=== PATIENT | male | born 1950 | race Caucasian/White ===

== ENCOUNTER 2016-05-27 22:17 | Emergency (ER) | payer OTHER, BC ==
[2016-05-27] MEDS ORDERED: NORMAL SALINE 10 ML SYRINGE FLUSH IVP PRN (22:26)
[2016-05-27] MEDS ORDERED: Sodium Chloride 0.9% 1,000 ML PRIMARY IV ONE (22:26)
[2016-05-27] MEDS ORDERED: LORazepam 2 MG/1 ML VIAL IVP ONE (22:27)
--- NOTE | 2016-05-27 22:31 | EKG ---
[address] [place] [address] [place] [address] Measurements Intervals [place] Rate: 80 P: 39 MD: 207 QRS: 16 QRSD: 95 T: 99 QT: 377 QTc: 413 Interpretive Statements SINUS RHYTHM WITH BORDERLINE FIRST DEGREE AV BLOCK ANTEROSEPTAL MYOCARDIAL INFARCTION OF INDETERMINATE AGE Compared to ECG 04/23/2016 04:18:19 Intraventricular conduction delay no longer present Myocardial infarct finding still present Electronically Signed On 05-28-16 09:07:01 [facility] by Matt Lara [id number]
[2016-05-27 22:45] LABS: BASOPHILS # (AUTO) 0.02 10*3/UL; BASOPHILS % (AUTO) 0.3 % (0-1); EOSINOPHILS % (AUTO) 1.5 % (0-8); HEMATOCRIT 47.6 % (42.0-52.0); IMM GRAN % (AUTO) 0.5 % (0-5); IMM GRAN# (AUTO) 0.03 10*3/UL; LYMPHOCYTES # (AUTO) 1.14 10*3/uL; MEAN CORPUSCULAR HEMOGLOBIN 29.9 PG (27-31); MEAN CORPUSCULAR HGB CONC 35.7 g/dL (33-37); MEAN PLATELET VOLUME 9.5 FL (7.4-12.2); MONOCYTES # (AUTO) 0.77 10*3/UL (0.3-0.8); MONOCYTES % (AUTO) 12.8 % (5-15); NEUTROPHILS # (AUTO) 3.96 10*3/UL; NEUTROPHILS % (AUTO) 65.9 % (50-80); RDW COEFFICIENT OF VARIATION 13.3 % (11.5-14.5); RED BLOOD COUNT 5.68 10^6/uL (4.70-6.10); WHITE BLOOD COUNT 6.01 10^3/uL (4.8-10.8)
[2016-05-27 22:48] LABS: PLATELET MORPHOLOGY COMMENT NORMAL MORPHOLOGY (NORM)
[2016-05-27 22:59] LABS: CHLORIDE 107 meq/L (98-112); POTASSIUM 3.8 meq/L (3.8-5.2); SODIUM 140 meq/L (135-145)
[2016-05-27 23:00] LABS: ASPARTATE AMINO TRANSFERASE 29 IU/L (21-57); BILIRUBIN,TOTAL 0.9 mg/dL (0.3-1.2); BLOOD UREA NITROGEN 10 mg/dL (7-22); CALCIUM 9.1 mg/dL (8.7-10.7); CREATININE 0.8 mg/dL (0.70-1.50); EST GLOMERULAR FILTRATION > 60 (>60 ml/min/1.73m(2)); GLUCOSE 120 mg/dL (78-110); MAGNESIUM 2.3 mg/dL (1.6-2.4); TOTAL PROTEIN 7.8 g/dL (6.1-8.0)
[2016-05-28 00:24] VITALS: RESP 20; TEMP 98.7
--- NOTE | 2016-05-28 01:24 | PDOC ---
General Adult HPI - General Chief Complaint: General Medical Stated Complaint: "Anxiety and shortness of breath" Date Seen by Provider: 05/28/16 Time Seen by Provider: 22:20 Source: POSITIVE: Patient Exam Limitations: POSITIVE: No limitations Nurse's Notes Reviewed & Considered: Yes - History of Present Illness Initial Comment: The patient is a 65-year-old male who presents to the emergency department by ambulance with shortness of breath. He states that approximately an hour ago he had onset of increased anxiety associated with increased shortness of breath. He denies chest pain, headache, numbness or weakness in his extremities. He states he tried taking Xanax at home however did not seem to be improving so they subsequently called EMS. By the time EMS arrived the patient was already starting to feel better. He was however still transferred here to the emergency room for evaluation. He has had similar episodes previously associated with panic attack. Have you received a tetanus shot in the past 10 years?: Unknown - Patient Home Medications Home Medications: Home Medications Aspirin 325 mg PO QAM 04/16/11 Rosuvastatin Calcium [Crestor] 0.5 tab ORAL QD #90 tab 10/23/15 Amlodipine Besylate [Norvasc] 1 tab ORAL QD #90 tab 11/05/15 Clopidogrel Bisulfate [Plavix] 1 tab ORAL QD #90 tab 01/20/16 Sertraline HCl 1 tab PO DAILY #30 tab 04/30/16 Methylprednisolone [Medrol] 4 mg PO 3-4XD #1 packet 05/20/16 Alprazolam 1 tab PO Q6H #10 tab 05/27/16 - Patient Allergies Allergies/Adverse Reactions: Allergies Allergy/AdvReac Type Severity Reaction Status Date / Time carvedilol [From Coreg] Allergy Severe bradycardia Unverified 05/20/16 11:33 Iodinated Contrast Media - Allergy Severe SOB Unverified 05/20/16 11:33 Oral and [IV Dye, Iodine Containing Contrast ] olive extract [[place]] Allergy Severe mouth Unverified 05/20/16 11:33 swells, lips swell ibuprofen [Ibuprofen] AdvReac Mild DIARRHEA Unverified 05/20/16 11:33 tangerines Allergy Severe swells Uncoded 04/23/16 03:45 throat shut Past Medical History - heen HEENT History: Hard of Hearing Cardiovascular History: Hypertension, Previous [place], CAD, Hyperlipidemia Additional Cardiovasular History: 2 CARDIAC STENTS. Respiratory History: Denies History Gastrointestinal History: Other (please comment) Additional Gastrointestinal History: DIVERTICULITIS;HISTORY OF COLOSTOMY WITH REVERSAL. Genitourinary History: Denies History Endocrine History: Denies History Musculoskeletal History: Denies History Prosthesis or Implant: No Neurological History: Denies History Blood Disorders: Denies History Psychiatric History: Depression, Anixety Disorders Additional Psychiatric History: HAVING ANXIETY THIS AM History of Sexually Transmitted Diseases: No Cancer History: Denies History In Past Year Been Physically Harmed or Verbally Threatened: No History of MDRO: No History of Other Communicable Diseases: No Tobacco Use: Never Smoker Alcohol Use: None Substance Use Type: None Previous Surgical History: Yes Type / Date of Surgery: COLOSTOMY WITH REVERSAL, CARDIAC STENTS X2. Anesthesia Reactions: No Malignant Hyperthermia: No Significant Family History: Heart disease, Hypertension Past Medical History Reviewed: Reviewed - No Changes ROS - Limitations ROS Limitations: No Limitations Constitution: DENIES: Chills, Fever Cardiovascular: REPORTS: Blood Pressure Problem (Elevated blood pressure). DENIES: Chest Pain, Heart Racing, Heart Palpitations, Edema Respiratory: REPORTS: Shortness Of Breath. DENIES: Cough Non Productive, Cough Productive Neurological: REPORTS: Dizziness. DENIES: Headache, Numbness, Weakness Gastrointestinal: REPORTS: Nausea. DENIES: Abdominal Pain, Vomitting, Diarrhea Musculoskeletal: REPORTS: Denies MS Symptoms Genitourinary: REPORTS: Denies Symptoms Eyes: REPORTS: Denies Symptoms ENT: REPORTS: Denies Symptoms General Adult Exam - General Appearance General Appearance: POSITIVE: Alert, Cooperative, No Acute Distress - HEENT HEENT: POSITIVE: Head Inspection Nml, Eyes Inspection Nml, Ears Inspection Nml, Pharynx Inspect. Nml - Neck Neck: POSITIVE: Normal Inspection. NEGATIVE: Lymphadenopathy - Respiratory Respiratory: POSITIVE: No Respiratory Distress, Breath Sounds Normal - Cardiovascular Cardiovascular: POSITIVE: Regular Rate & Rhythm, No Murmur Peripheral Pulses: Dorsalis-pedis (R): 2+, Dorsalis-pedis (L): 2+ - Abdomen Abdomen: Soft: (All Quadrants), Denies Tenderness: (All Quadrants), No Distention: (All Quadrants) General Adult Progress - Results Reviewed by me Xrays/CTs/US Reviewed by me: Yes Radiology Findings: Chest x-ray shows normal heart size, normal lung adames. Lab Results Reviewed: Yes Lab Results:: Laboratory Results 05/27/16 Range/Units 22:35 WBC 6.01 (4.8-10.8) 10^3/uL RBC 5.68 (4.70-6.10) 10^6/uL Hgb 17.0 (14.0-18.0) g/dL Hct 47.6 (42.0-52.0) % MCV 83.8 (80-90) FL MCH 29.9 (27-31) PG MCHC 35.7 (33-37) g/dL RDW Std Deviation 40.7 (39-50) fL RDW Coeff of Jacob 13.3 (11.5-14.5) % Plt Count 164 (140-350) 10*3/uL MPV 9.5 (7.4-12.2) FL Immature Gran % (Auto) 0.5 (0-5) % Neut % (Auto) 65.9 (50-80) % Lymph % (Auto) 19.0 (10-50) % [place] % (Auto) 12.8 (5-15) % Eos % (Auto) 1.5 (0-8) % Baso % (Auto) 0.3 (0-1) % Immature Gran # (Auto) 0.03 10*3/UL Neut # (Auto) 3.96 10*3/UL Lymph # (Auto) 1.14 10*3/uL [place] # (Auto) 0.77 (0.3-0.8) 10*3/UL Eos # (Auto) 0.09 10*3/UL Baso # (Auto) 0.02 10*3/UL WBC Morphology Comment Normal morphology (NORM) Plt Morphology Comment Normal morphology (NORM) RBC Morph Comment Normal morphology (NORM) D-Dimer < 0.19 (0.00-0.59) mg/L Sodium 140 (135-145) meq/L Potassium 3.8 (3.8-5.2) meq/L Chloride 107 (98-112) meq/L Carbon Dioxide 22 L (23-33) meq/L Anion Gap 11 (5-20) BUN 10 (7-22) mg/dL Creatinine 0.8 (0.70-1.50) mg/dL Estimated GFR > 60 (>60 ml/min/1.73m(2)) BUN/Creatinine Ratio 12.50 (6-20) Glucose 120 H (78-110) mg/dL Calculated Osmolality 289.0 (267-292) mOsm/kg Calcium 9.1 (8.7-10.7) mg/dL Magnesium 2.3 (1.6-2.4) mg/dL Total Bilirubin 0.9 (0.3-1.2) mg/dL AST 29 (21-57) IU/L ALT 31 (21-72) IU/L Alkaline Phosphatase 42 (38-126) IU/L Troponin I 0.010 (< 0.040) ng/mL Total Protein 7.8 (6.1-8.0) g/dL Albumin 4.3 (3.5-4.8) g/dL Globulin 3.5 (2.50-4.10) g/dL Albumin/Globulin Ratio 1.20 L (1.3-2.0) mg/g EKG Interpreted/Reviewed By Me:: Yes EKG Interpretation:: POSITIVE: Normal Sinus Rhythm, Normal Rate, Normal Intervals, Normal ST/T - Patient's Progress MDM / ED Course: By the time the patient arrived in the emergency room his symptoms were already starting to improve. He did receive a dose of Ativan and subsequently his symptoms resolved. His EKG, chest x-ray and blood work are all essentially unremarkable. The patient will be discharged home. He is advised to continue his current medications as previously prescribed. Return to the emergency room if any worsening or change in symptoms. - Consult Counseled: POSITIVE: Patient, Family, RE: Lab Results, RE: Radiology Results, RE : DX, RE: Need for F/U Patient Care Time - Estimated PCT Patient Care Time (In Minutes): 30 Vital Signs - Recent Vital Signs Vital Signs: Vital Signs (Last 8 hours) Temp Pulse Resp BP Pulse Ox 05/27/16 22:17 98.7 F 81 20 176/100 97 - VS Reviewed Vital Signs Reviewed: Yes Discharge Clinical Impression: Panic attack Condition: Stable Patient Instructions Given at Discharge: Panic Attack (ED) Additional Instructions: Your EKG, and blood work were all unremarkable. Your symptoms are most likely caused by panic attack. Continue Xanax as previously prescribed. Return to the emergency room if any worsening or change in symptoms. Recommend follow-up with Dr. Dyson in 3-5 days. Follow Up With: MAYRA DYSON [Primary Care Provider] -
--- NOTE | 2016-05-28 09:16 | DI ---
XR CXR 1VW,05/27/2016 10:26 PM: Clinical History: Dyspnea and hypertension Previous Exam: July 19, 2015 Findings: A single frontal radiograph of the chest is obtained, and demonstrates clear lungs. The cardiomediast inum and bony thorax are unremarkable. Overlying EKG leads are seen. There are some subsegmental plat elike atelectasis within the lung bases. Impression: Subsegmental atelectasis in the left lung base otherwise unremarkable.
== END 2016-05-27 23:52 | disposition home or self-care (01) ==
LOC: ER 22:17
DX: F41.0 Panic disorder [episodic paroxysmal anxiety] (principal); R42 Dizziness and giddiness; I10 Essential (primary) hypertension; R06.02 Shortness of breath
CPT/HCPCS: 71010; 80053; 83735; 83880; 84484; 85025; 85379; 93005; 93010; 99283; J2060

== ENCOUNTER 2016-06-03 09:48 | Emergency (ER) | payer OTHER, BC ==
[2016-06-03] MEDS ORDERED: NORMAL SALINE 10 ML SYRINGE FLUSH IVP PRN (10:10)
[2016-06-03] MEDS ORDERED: Sodium Chloride 0.9% 1,000 ML PRIMARY IV ONE (10:10)
[2016-06-03 10:11] VITALS: RESP 20; TEMP 97.3
--- NOTE | 2016-06-03 10:14 | EKG ---
[address] [address] Measurements Intervals [place] Rate: 80 P: 64 MO: 191 QRS: 56 QRSD: 93 T: 110 QT: 364 QTc: 401 Interpretive Statements SINUS RHYTHM ANTEROSEPTAL MYOCARDIAL INFARCTION OLD Compared to ECG 05/27/2016 22:27:19 No significant changes Electronically Signed On 06-03-16 11:13:11 [facility] by Matt Lara [id number]
[2016-06-03 10:20] LABS: BASOPHILS # (AUTO) 0.01 10*3/UL; BASOPHILS % (AUTO) 0.2 % (0-1); EOSINOPHILS % (AUTO) 1.5 % (0-8); HEMATOCRIT 50.1 % (42.0-52.0); HEMOGLOBIN 17.7 g/dL (14.0-18.0); IMM GRAN % (AUTO) 0.6 % (0-5); IMM GRAN# (AUTO) 0.03 10*3/UL; LYMPHOCYTES # (AUTO) 0.81 10*3/uL; LYMPHOCYTES % (AUTO) 16.9 % (10-50); MEAN CORPUSCULAR HEMOGLOBIN 29.6 PG (27-31); MEAN CORPUSCULAR HGB CONC 35.3 g/dL (33-37); MEAN PLATELET VOLUME 9.9 FL (7.4-12.2); MONOCYTES # (AUTO) 0.61 10*3/UL (0.3-0.8); MONOCYTES % (AUTO) 12.7 % (5-15); NEUTROPHILS # (AUTO) 3.27 10*3/UL; NEUTROPHILS % (AUTO) 68.1 % (50-80); RDW COEFFICIENT OF VARIATION 13.1 % (11.5-14.5); RED BLOOD COUNT 5.98 10^6/uL (4.70-6.10)
[2016-06-03 10:23] LABS: PLATELET MORPHOLOGY COMMENT NORMAL MORPHOLOGY (NORM)
[2016-06-03 10:25] LABS: ASPARTATE AMINO TRANSFERASE 30 IU/L (21-57); BILIRUBIN,TOTAL 1.3 mg/dL (0.3-1.2); BLOOD UREA NITROGEN 9 mg/dL (7-22); CALCIUM 9.8 mg/dL (8.7-10.7); CHLORIDE 103 meq/L (98-112); EST GLOMERULAR FILTRATION > 60 (>60 ml/min/1.73m(2)); GLUCOSE 121 mg/dL (78-110); SODIUM 138 meq/L (135-145); TOTAL PROTEIN 7.6 g/dL (6.1-8.0)
[2016-06-03 10:37] LABS: CREATINE KINASE MB 2.93 NG/DL (0.00-5.00); TROPONIN I < 0.012 ng/mL (< 0.040)
--- NOTE | 2016-06-03 10:45 | DI ---
History: Dyspnea. Two-view study. Prior examination: 07/19/15 Findings: Minimal linear scarring right lung base. No cardiac enlargement. Small epicardial fat pad a t the apex, as observed previously. No effusion and no infiltrate identified. Impression: Minimal linear scarring right lung base. No other focal findings
--- NOTE | 2016-06-03 12:19 | PDOC ---
General Adult HPI - General Chief Complaint: Chest Pain Stated Complaint: shortness of breath, dizzyness, "chest feels hollow" Date Seen by Provider: 06/03/16 Time Seen by Provider: 09:52 Source: POSITIVE: Patient Exam Limitations: POSITIVE: No limitations Nurse's Notes Reviewed & Considered: Yes - History of Present Illness Initial Comment: The patient is a 65-year-old male. He presents to the emergency room by private auto. He states that this morning he became very anxious; he states that part of the source of his anxiety is the emotional stress he feels in being essentially the sole caregiver of his 94-year-old father. He has a long- standing history of anxiety for which she has been prescribed Xanax, but he states he's not taken any Xanax for over 2 days. He has been prescribed Xanax, 0.25 mg. He complains of being short of breath and somewhat dizzy. He states he has a "hollow"sensation in his chest but denies any kind of chest pain. He does have a history of coronary artery disease and underwent two coronary artery stents in 2004; he states he was diagnosed with a myocardial infarction in 2004. He does not smoke. He took 325 mg of aspirin at 4 AM. He takes Norvasc, Plavix, Crestor and Zoloft, and Xanax, on an as necessary basis. He was seen in the emergency room 4 days ago, he states, for anxiety and received some Ativan at that time. Have you received a tetanus shot in the past 10 years?: Unknown Body Location Affected: REPORTS: Other (As above; sensation of shortness of breath and" a hollow feeling" in my chest.) Timing: REPORTS: Abrupt Duration: 4-6 hours (Onset around 6 AM today) Severity: Moderate Quality: REPORTS: Other (Patient denies any chest pain or any other kind of pain anywhere) Context: REPORTS: None Modifying Factors: improves with: Nothing Associated Symptoms: As above Similar Symptoms Previously: Yes (history of similar symptoms with episodes of anxiety) Recent Care Received: REPORTS: Recently Seen (Seen in the ER 4 days ago for anxiety; see above) Any Prior Injuries Related to Current Complaint?: No - Patient Home Medications Home Medications: Home Medications Aspirin 325 mg PO QAM 04/16/11 Rosuvastatin Calcium [Crestor] 0.5 tab ORAL QD #90 tab 10/23/15 Amlodipine Besylate [Norvasc] 1 tab ORAL QD #90 tab 11/05/15 Clopidogrel Bisulfate [Plavix] 1 tab ORAL QD #90 tab 01/20/16 Sertraline HCl 1 tab PO DAILY #30 tab 04/30/16 Alprazolam 1 tab PO Q6H #60 tab 05/29/16 - Patient Allergies Allergies/Adverse Reactions: Allergies Allergy/AdvReac Type Severity Reaction Status Date / Time carvedilol [From Coreg] Allergy Severe bradycardia Verified 06/03/16 09:54 Iodinated Contrast Media - Allergy Severe SOB Verified 06/03/16 09:54 Oral and [IV Dye, Iodine Containing Contrast ] olive extract [[place]] Allergy Severe mouth Verified 06/03/16 09:54 swells, lips swell ibuprofen [Ibuprofen] AdvReac Mild DIARRHEA Verified 06/03/16 09:54 tangerines Allergy Severe swells Uncoded 06/03/16 09:54 throat shut Past Medical History - heen HEENT History: Hard of Hearing Cardiovascular History: Hypertension, Previous [place], CAD, Hyperlipidemia Additional Cardiovasular History: 2 CARDIAC STENTS. Respiratory History: Denies History Gastrointestinal History: Other (please comment) Additional Gastrointestinal History: DIVERTICULITIS;HISTORY OF COLOSTOMY WITH REVERSAL. Genitourinary History: Denies History Endocrine History: Denies History Musculoskeletal History: Denies History Prosthesis or Implant: No Neurological History: Denies History Blood Disorders: Denies History Psychiatric History: Depression, Anixety Disorders Additional Psychiatric History: HAVING ANXIETY THIS AM History of Sexually Transmitted Diseases: No Cancer History: Denies History In Past Year Been Physically Harmed or Verbally Threatened: No History of MDRO: No History of Other Communicable Diseases: No Tobacco Use: Never Smoker Alcohol Use: None Substance Use Type: None Previous Surgical History: Yes Type / Date of Surgery: COLOSTOMY WITH REVERSAL, CARDIAC STENTS X2. Anesthesia Reactions: No Malignant Hyperthermia: No Significant Family History: Heart disease, Hypertension Past Medical History Reviewed: Reviewed - No Changes ROS - Limitations ROS Limitations: No Limitations Constitution: REPORTS: Denies Symptoms Cardiovascular: REPORTS: Denies Cardiac Symptoms Respiratory: REPORTS: Shortness Of Breath Neurological: REPORTS: Dizziness Gastrointestinal: REPORTS: Denies GI Symptoms Endocrine: REPORTS: Denies Symptoms Musculoskeletal: REPORTS: Denies MS Symptoms Genitourinary: REPORTS: Denies Symptoms Eyes: REPORTS: Denies Symptoms ENT: REPORTS: Denies Symptoms Skin: REPORTS: Denies Skin Symptoms Lympathic: REPORTS: Denies Lympathic Symptoms Immunologic: POSITIVE: Denies Symptoms Psychiatric: POSITIVE: Anxiety General Adult Exam - General Appearance General Appearance: POSITIVE: Alert, Cooperative, No Acute Distress, No Evidence of Trauma, Anxious (Patient hyperventilating.) - HEENT HEENT: POSITIVE: Head Inspection Nml, Eyes Inspection Nml, Ears Inspection Nml, Nose Inspection Nml, Oral/Dental Inspect. Nml, Pharynx Inspect. Nml, PERRL, EOMI - Pupils Pupil Size: 4 mm: Bilateral (PERRLA) - Neck Neck: POSITIVE: Normal Inspection, Thyroid Normal - Respiratory Respiratory: POSITIVE: No Respiratory Distress, Breath Sounds Normal, Chest Non- Tender - Cardiovascular Cardiovascular: POSITIVE: Regular Rate & Rhythm, No Murmur, No Gallop, PMI Normal Peripheral Pulses: Radial (R): 2+, Radial (L): 2+ - Abdomen Abdomen: Soft: (All Quadrants), Normal Bowel Sounds: (All Quadrants), Denies Tenderness: (All Quadrants), No Splenomegaly: (All Quadrants), No Hepatomegaly: (All Quadrants), No Guarding: (All Quadrants), No Rebound: (All Quadrants), No Palpable Pulse: (All Quadrants), No Palpabale Mass: (All Quadrants), No Distention: (All Quadrants), No Rigidity: (All Quadrants) - Back Back: POSITIVE: Normal Inspection - Skin Skin: POSITIVE: Normal Color, Warm, Dry, No Rash - Extremities Extremity: Non-Tender: (All Extremities), Normal ROM: (All Extremities), Normal Inspection: (All Extremities) - Neurological / Psychological Neurological: POSITIVE: Oriented X3, 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, Motor Normal, Sensation Normal, 5, 6 General Adult Progress - Results Reviewed by me Xrays/CTs/US Reviewed by me: Yes Discussed with Radiologist: No Radiology Findings: Chest x-ray normal by my interpretation; radiologist interpretation pending Lab Results Reviewed: Yes (all normal except mild respiratory alkalosis on venous blood gas) Lab Results:: Laboratory Results 06/03/16 06/03/16 Range/Units 10:15 10:26 WBC 4.80 (4.8-10.8) 10^3/uL RBC 5.98 (4.70-6.10) 10^6/uL Hgb 17.7 (14.0-18.0) g/dL Hct 50.1 (42.0-52.0) % MCV 83.8 (80-90) FL MCH 29.6 (27-31) PG MCHC 35.3 (33-37) g/dL RDW Std Deviation 40.3 (39-50) fL RDW Coeff of Jacob 13.1 (11.5-14.5) % Plt Count 160 (140-350) 10*3/uL MPV 9.9 (7.4-12.2) FL Immature Gran % (Auto) 0.6 (0-5) % Neut % (Auto) 68.1 (50-80) % Lymph % (Auto) 16.9 (10-50) % [place] % (Auto) 12.7 (5-15) % Eos % (Auto) 1.5 (0-8) % Baso % (Auto) 0.2 (0-1) % Immature Gran # (Auto) 0.03 10*3/UL Neut # (Auto) 3.27 10*3/UL Lymph # (Auto) 0.81 10*3/uL [place] # (Auto) 0.61 (0.3-0.8) 10*3/UL Eos # (Auto) 0.07 10*3/UL Baso # (Auto) 0.01 10*3/UL WBC Morphology Comment Normal morphology (NORM) Plt Morphology Comment Normal morphology (NORM) RBC Morph Comment Normal morphology (NORM) D-Dimer 0.46 (0.00-0.59) mg/L VBG pH 7.44 H (7.32-7.42) VBG pCO2 36 L (45-55) mmHg VBG HCO3 25 (22-26) mmol/L VBG Base Excess 1 (-2-2) MMOL/L Sodium 138 (135-145) meq/L Potassium 4.0 (3.8-5.2) meq/L Chloride 103 (98-112) meq/L Carbon Dioxide 25 (23-33) meq/L Anion Gap 10 (5-20) BUN 9 (7-22) mg/dL Creatinine 1.0 (0.70-1.50) mg/dL Estimated GFR > 60 (>60 ml/min/1.73m(2)) BUN/Creatinine Ratio 9.00 (6-20) Glucose 121 H (78-110) mg/dL Calculated Osmolality 285.0 (267-292) mOsm/kg Calcium 9.8 (8.7-10.7) mg/dL Total Bilirubin 1.3 H (0.3-1.2) mg/dL AST 30 (21-57) IU/L ALT 33 (21-72) IU/L Alkaline Phosphatase 48 (38-126) IU/L CK-MB (CK-2) 2.93 (0.00-5.00) NG/DL Troponin I < 0.012 (< 0.040) ng/mL NT-Pro-B Natriuret Pep 258 H (0-125) PG/ML Total Protein 7.6 (6.1-8.0) g/dL Albumin 4.4 (3.5-4.8) g/dL Globulin 3.2 (2.50-4.10) g/dL Albumin/Globulin Ratio 1.30 (1.3-2.0) mg/g EKG Interpreted/Reviewed By Me:: Yes EKG Interpretation:: POSITIVE: Normal Sinus Rhythm, Normal Rate, Normal Intervals, Normal [place], Normal ST/T, Abnormal EKG, Unchanged. NEGATIVE: Normal QRS (Q waves anteroseptal leads compatible with old anteroseptal myocardial infarction; identified on previous electrocardiograms) - Patient's Progress Pain Medication Addressed: POSITIVE: Not Applicable School/Work Release Addressed: POSITIVE: Not Applicable Re-Examine Time: 11:00 Re-Examine Comment: Patient took some of his Xanax, which she has with him, 0.25 mg, orally. Patient's symptoms resolved and he is asymptomatic upon discharge from the emergency room. Status: POSITIVE: Improved, Re-Examined Antibiotics Given: No Quality Measure Initiative: CP/AMI: POSITIVE: EKG, ASA - Consult Counseled: POSITIVE: Patient, RE: Lab Results, RE: Radiology Results, RE: DX, RE : Need for F/U Patient Care Time - Estimated PCT Patient Care Time (In Minutes): 35 Vital Signs - Recent Vital Signs Vital Signs: Vital Signs (Last 8 hours) Temp Pulse Resp BP Pulse Ox 06/03/16 09:49 97.3 F 74 20 162/95 97 - VS Reviewed Vital Signs Reviewed: Yes Discharge Clinical Impression: Anxiety Discharge Disposition: Discharged to Home Condition: Stable Patient Instructions Given at Discharge: Anxiety (ED) Additional Instructions: Please be assured that I have checked you over very carefully for any heart disease, lung disease or any other serious medical problems. Your electrocardiogram is unchanged from previous electrocardiograms, which does show that you have had a myocardial infarction in the distant past. Chest x- ray is normal. All your blood tests, including blood tests for heart attacks, congestive heart failure and blood clots in the lungs are all normal. I believe you're going to be fine. I believe you're symptoms are related to your known anxiety disorder, which are exacerbated by your concern for your elderly father. I believe your taking responsibility for the care of your father is very admirable. You already on Xanax for anxiety. You can take up to 3 Xanax tablets daily as necessary, however, if you don't need this medication please do not take it. Follow-up with Dr. Sifuentes, your primary care provider. Return here anytime if condition worsens in any way. Follow Up With: MAYRA SIFUENTES [Primary Care Provider] - (Instructions as above. Follow-up with Dr. Sifuentes. Return here anytime if we can be of any further service in any way.)
== END 2016-06-03 11:05 | disposition home or self-care (01) ==
LOC: ER 09:48
DX: F41.9 Anxiety disorder, unspecified (principal); R06.02 Shortness of breath; R42 Dizziness and giddiness; I25.10 Atherosclerotic heart disease of native coronary artery without angina pectoris; I25.2 Old myocardial infarction
CPT/HCPCS: 36415; 71020; 80053; 82553; 82803; 83880; 84484; 85025; 85379; 93005; 93010; 96360; 99284

== ENCOUNTER 2016-06-30 15:01 | Emergency (ER) | payer OTHER, BC ==
[2016-06-30 15:12] VITALS: RESP 14; TEMP 96.8
[2016-06-30] MEDS ORDERED: Sodium Chloride 0.9% 1,000 ML PRIMARY IV ONE (15:12)
[2016-06-30] MEDS ORDERED: NORMAL SALINE 10 ML SYRINGE FLUSH IVP PRN (15:12)
[2016-06-30] MEDS ORDERED: ASPIRIN 81 MG (BABY) CHEWABLE TABLET PO ONE (15:12)
--- NOTE | 2016-06-30 15:15 | EKG ---
[address] [address] Measurements Intervals [place] Rate: 76 P: 62 [place]: 199 QRS: 13 QRSD: 93 T: 97 QT: 373 QTc: 403 Interpretive Statements SINUS RHYTHM ANTEROSEPTAL MYOCARDIAL INFARCTION OF INDETERMINATE AGE Compared to ECG 06/03/2016 09:52:44 No significant changes Electronically Signed On 07-01-16 11:43:55 [facility] by Matt Lara [id number]
[2016-06-30 15:30] LABS: BASOPHILS # (AUTO) 0.03 10*3/UL; BASOPHILS % (AUTO) 0.5 % (0-1); EOSINOPHILS % (AUTO) 1.8 % (0-8); HEMATOCRIT 47.5 % (42.0-52.0); HEMOGLOBIN 17.1 g/dL (14.0-18.0); IMM GRAN % (AUTO) 0.3 % (0-5); IMM GRAN# (AUTO) 0.02 10*3/UL; LYMPHOCYTES # (AUTO) 0.95 10*3/uL; LYMPHOCYTES % (AUTO) 15.5 % (10-50); MEAN CORPUSCULAR HEMOGLOBIN 30.2 PG (27-31); MEAN PLATELET VOLUME 9.6 FL (7.4-12.2); MONOCYTES # (AUTO) 0.82 10*3/UL (0.3-0.8); MONOCYTES % (AUTO) 13.4 % (5-15); NEUTROPHILS % (AUTO) 68.5 % (50-80); RDW COEFFICIENT OF VARIATION 12.7 % (11.5-14.5); RED BLOOD COUNT 5.67 10^6/uL (4.70-6.10); WHITE BLOOD COUNT 6.13 10^3/uL (4.8-10.8)
[2016-06-30 15:31] LABS: PLATELET MORPHOLOGY COMMENT NORMAL MORPHOLOGY (NORM)
[2016-06-30 15:47] LABS: ASPARTATE AMINO TRANSFERASE 55 IU/L (21-57); BLOOD UREA NITROGEN 13 mg/dL (7-22); CALCIUM 9.4 mg/dL (8.7-10.7); CHLORIDE 105 meq/L (98-112); EST GLOMERULAR FILTRATION > 60 (>60 ml/min/1.73m(2)); GLUCOSE 116 mg/dL (78-110); SODIUM 138 meq/L (135-145); TOTAL PROTEIN 7.2 g/dL (6.1-8.0)
[2016-06-30 15:59] LABS: CREATINE KINASE MB 1.81 NG/DL (0.00-5.00)
[2016-06-30 16:03] LABS: TROPONIN I < 0.012 ng/mL (< 0.040)
--- NOTE | 2016-06-30 16:18 | DI ---
PA /LATERAL CHEST X-RAY, 06/30/2016 3:30 PM : Clinical History: Chest feels hollow. Previous Exam: June 03, 2016 There is no acute soft tissue or bony abnormality. Heart size is normal. Lungs are clear. Mediastinal structures are normal. There are no pulmonary nodules. IMPRESSION: Normal chest x-ray.
--- NOTE | 2016-06-30 19:11 | PDOC ---
General Adult HPI - General Chief Complaint: General Medical Stated Complaint: "MY CHEST FEELS HOLLOW AND I FEEL DIZZY" Date Seen by Provider: 06/30/16 Time Seen by Provider: 15:05 Source: POSITIVE: Patient Exam Limitations: POSITIVE: No limitations Nurse's Notes Reviewed & Considered: Yes - History of Present Illness Initial Comment: The patient is a 65-year-old male. This morning he states he was eating breakfast and he states that he had a sensation of "lightheadedness"and he states he subsequently developed a "hollow"sensation in his chest. Patient had no syncope or near-syncope. No chest pain. No dyspnea. No sensory or motor symptoms. No GI or symptoms. Patient does have a history of hypertension for which he takes Norvasc and he has a history of hypercholesterolemia for which he takes Crestor. History of anxiety and he takes Zoloft. He had a myocardial infarction in 2004 with 2 stents placed at that time. He is on Plavix. Have you received a tetanus shot in the past 10 years?: No Body Location Affected: REPORTS: Chest (" Hollow feeling"), Other ( Lightheadedness) Timing: REPORTS: Abrupt Duration: <24 hours (Onset 10 hours SEWER TAPPER) Severity: Mild Quality: REPORTS: Other (No pain; patient does relate that he had a" hollow sensation" in his chest) Context: REPORTS: Other (Eating breakfast) Modifying Factors: improves with: Nothing Similar Symptoms Previously: No Recent Care Received: REPORTS: Denies Any Prior Injuries Related to Current Complaint?: No - Patient Home Medications Home Medications: Home Medications Aspirin 325 mg PO QAM 04/16/11 Rosuvastatin Calcium [Crestor] 0.5 tab ORAL QD #90 tab 10/23/15 Amlodipine Besylate [Norvasc] 1 tab ORAL QD #90 tab 11/05/15 Clopidogrel Bisulfate [Plavix] 1 tab ORAL QD #90 tab 01/20/16 Sertraline HCl 1 tab PO DAILY #30 tab 04/30/16 Alprazolam 1 tab PO Q6H #60 tab 05/29/16 - Patient Allergies Allergies/Adverse Reactions: Allergies Allergy/AdvReac Type Severity Reaction Status Date / Time carvedilol [From Coreg] Allergy Severe bradycardia Verified 06/30/16 15:06 Iodinated Contrast Media - Allergy Severe SOB Verified 06/30/16 15:06 Oral and [IV Dye, Iodine Containing Contrast ] olive extract [Nardin] Allergy Severe mouth Verified 06/30/16 15:06 swells, lips swell ibuprofen [Ibuprofen] AdvReac Mild DIARRHEA Verified 06/30/16 15:06 tangerines Allergy Severe swells Uncoded 06/30/16 15:06 throat shut Past Medical History - heen HEENT History: Hard of Hearing Cardiovascular History: Hypertension, Previous DC, CAD, Hyperlipidemia Additional Cardiovasular History: 2 CARDIAC STENTS. Respiratory History: Denies History Gastrointestinal History: Other (please comment) Additional Gastrointestinal History: DIVERTICULITIS;HISTORY OF COLOSTOMY WITH REVERSAL. Genitourinary History: Denies History Endocrine History: Denies History Musculoskeletal History: Denies History Prosthesis or Implant: No Neurological History: Denies History Blood Disorders: Denies History Psychiatric History: Depression, Anxiety Disorders Additional Psychiatric History: HAVING ANXIETY THIS AM History of Sexually Transmitted Diseases: No Male Reproductive History: Denies History Cancer History: Denies History In Past Year Been Physically Harmed or Verbally Threatened: No History of MDRO: No History of Other Communicable Diseases: No Tobacco Use: Unknown If Ever Smoked Alcohol Use: None Substance Use Type: None Previous Surgical History: Yes Type / Date of Surgery: COLOSTOMY WITH REVERSAL, CARDIAC STENTS X2. Anesthesia Reactions: No Malignant Hyperthermia: No Significant Family History: Heart disease, Hypertension Past Medical History Reviewed: Reviewed - No Changes ROS - Limitations ROS Limitations: No Limitations Constitution: REPORTS: Other (Lightheadedness; now resolved) Cardiovascular: REPORTS: Denies Cardiac Symptoms Respiratory: REPORTS: Denies Resp Symptoms Neurological: REPORTS: Denies Neuro Symptoms Gastrointestinal: REPORTS: Denies GI Symptoms Endocrine: REPORTS: Denies Symptoms Musculoskeletal: REPORTS: Denies MS Symptoms Genitourinary: REPORTS: Denies Symptoms Eyes: REPORTS: Denies Symptoms ENT: REPORTS: Denies Symptoms Skin: REPORTS: Denies Skin Symptoms Lympathic: REPORTS: Denies Lympathic Symptoms Immunologic: POSITIVE: Denies Symptoms Psychiatric: POSITIVE: Anxiety General Adult Exam - General Appearance General Appearance: POSITIVE: Alert, Cooperative, No Acute Distress, No Evidence of Trauma - HEENT HEENT: POSITIVE: Head Inspection Nml, Eyes Inspection Nml, Ears Inspection Nml, Nose Inspection Nml, Oral/Dental Inspect. Nml, Pharynx Inspect. Nml, PERRL, EOMI - Pupils Pupil Size: 4 mm: Bilateral (PERRLA) - Neck Neck: POSITIVE: Normal Inspection, Thyroid Normal - Respiratory Respiratory: POSITIVE: No Respiratory Distress, Breath Sounds Normal, Chest Non- Tender - Cardiovascular Cardiovascular: POSITIVE: Regular Rate & Rhythm, No Murmur, No Gallop, PMI Normal Peripheral Pulses: Radial (R): 2+, Radial (L): 2+ - Abdomen Abdomen: Soft: (All Quadrants), Normal Bowel Sounds: (All Quadrants), Denies Tenderness: (All Quadrants), No Splenomegaly: (All Quadrants), No Hepatomegaly: (All Quadrants), No Guarding: (All Quadrants), No Rebound: (All Quadrants), No Palpable Pulse: (All Quadrants), No Palpabale Mass: (All Quadrants), No Distention: (All Quadrants), No Rigidity: (All Quadrants) - Back Back: POSITIVE: Normal Inspection - Skin Skin: POSITIVE: Normal Color, Warm, Dry, No Rash - Extremities Extremity: Non-Tender: (All Extremities), Normal ROM: (All Extremities), Normal Inspection: (All Extremities) - Neurological / Psychological Neurological: POSITIVE: Oriented X3, rolls baker Normal As Tested, Motor Normal, Sensation Normal, 5, 6 General Adult Progress - Results Reviewed by me Xrays/CTs/US Reviewed by me: Yes Discussed with Radiologist: Yes Radiology Findings: Chest x-ray normal Lab Results Reviewed: Yes Lab Results:: Laboratory Results 06/30/16 Range/Units 15:25 WBC 6.13 (4.8-10.8) 10^3/uL RBC 5.67 (4.70-6.10) 10^6/uL Hgb 17.1 (14.0-18.0) g/dL Hct 47.5 (42.0-52.0) % MCV 83.8 (80-90) FL MCH 30.2 (27-31) PG MCHC 36.0 (33-37) g/dL RDW Std Deviation 39.0 (39-50) fL RDW Coeff of Jacob 12.7 (11.5-14.5) % Plt Count 157 (140-350) 10*3/uL MPV 9.6 (7.4-12.2) FL Immature Gran % (Auto) 0.3 (0-5) % Neut % (Auto) 68.5 (50-80) % Lymph % (Auto) 15.5 (10-50) % [place] % (Auto) 13.4 (5-15) % Eos % (Auto) 1.8 (0-8) % Baso % (Auto) 0.5 (0-1) % Immature Gran # (Auto) 0.02 10*3/UL Neut # (Auto) 4.20 10*3/UL Lymph # (Auto) 0.95 10*3/uL [place]der # (Auto) 0.82 H (0.3-0.8) 10*3/UL Eos # (Auto) 0.11 10*3/UL Baso # (Auto) 0.03 10*3/UL WBC Morphology Comment Normal morphology (NORM) Plt Morphology Comment Normal morphology (NORM) RBC Morph Comment Normal morphology (NORM) D-Dimer 0.23 (0.00-0.59) mg/L Sodium 138 (135-145) meq/L Potassium 4.0 (3.8-5.2) meq/L Chloride 105 (98-112) meq/L Carbon Dioxide 24 (23-33) meq/L Anion Gap 9 (5-20) BUN 13 (7-22) mg/dL Creatinine 1.0 (0.70-1.50) mg/dL Estimated GFR > 60 (>60 ml/min/1.73m(2)) BUN/Creatinine Ratio 13.00 (6-20) Glucose 116 H (78-110) mg/dL Calculated Osmolality 286.0 (267-292) mOsm/kg Calcium 9.4 (8.7-10.7) mg/dL Total Bilirubin 1.0 (0.3-1.2) mg/dL AST 55 (21-57) IU/L ALT 31 (21-72) IU/L Alkaline Phosphatase 50 (38-126) IU/L CK-MB (CK-2) 1.81 (0.00-5.00) NG/DL Troponin I < 0.012 (< 0.040) ng/mL Total Protein 7.2 (6.1-8.0) g/dL Albumin 4.2 (3.5-4.8) g/dL Globulin 2.9 (2.50-4.10) g/dL Albumin/Globulin Ratio 1.40 (1.3-2.0) mg/g EKG Interpreted/Reviewed By Me:: Yes (Q-wave anteroseptal leads; unchanged from previous EKGs) EKG Interpretation:: POSITIVE: Normal Sinus Rhythm, Normal Rate, Normal Intervals, Normal ST/T. NEGATIVE: Normal [place], Normal QRS (Q waves in anteroseptal leads; unchanged from previous EKGs) - Patient's Progress Pain Medication Addressed: POSITIVE: Not Applicable School/Work Release Addressed: POSITIVE: Not Applicable Re-Examine Time: 16:35 Re-Examine Comment: Patient remained asymptomatic throughout his stay in the emergency room. child monitor showed normal sinus rhythm throughout his emergency room stay. Status: POSITIVE: Unchanged, Re-Examined Antibiotics Given: No - Consult Counseled: POSITIVE: Patient, RE: Lab Results, RE: Radiology Results, RE: DX, RE : Need for F/U Patient Care Time - Estimated PCT Patient Care Time (In Minutes): 40 Vital Signs - Recent Vital Signs Vital Signs: Vital Signs (Last 8 hours) Temp Pulse Pulse Resp BP Pulse Ox 06/30/16 15:12 76 06/30/16 15:05 76 06/30/16 15:01 96.8 F 75 14 166/99 94 - VS Reviewed Vital Signs Reviewed: Yes Discharge Clinical Impression: Dizziness, Anxiety Discharge Disposition: Discharged to Home Condition: Stable Patient Instructions Given at Discharge: Lightheadedness (ED), Anxiety (ED) Additional Instructions: Your blood tests, electrocardiogram and chest x-ray are all normal; your electrocardiogram shows you had a old myocardial infarction but is completely unchanged from your recent cardiograms. I do not think your symptoms are due to strokes, cardiac disease, pulmonary disease, or any other serious problems. I think you do have underlying anxiety. Follow-up with your primary care provider. Return here anytime if condition worsens in any way whatsoever, or as necessary. Follow Up With: MAYRA SIFUENTES [Primary Care Provider] - (Instructions as above. Return here anytime if condition worsens in any way. Follow-up with your primary care provider.)
== END 2016-06-30 16:40 | disposition home or self-care (01) ==
LOC: ER 15:01
DX: R42 Dizziness and giddiness (principal); F41.9 Anxiety disorder, unspecified; R07.89 Other chest pain; I25.2 Old myocardial infarction
CPT/HCPCS: 71020; 80053; 82553; 84484; 85025; 85379; 93005; 93010; 99284; J7030

== ENCOUNTER → 2016-08-28 | Outpatient (CLI) | payer OTHER, BC ==
--- NOTE | 2016-08-28 15:36 | DI ---
LUMBAR SPINE SERIES, 08/28/2016 10:25 AM: Clinical History: Acute bilateral low back pain. Previous Exam: None at this facility. AP and lateral views are submitted. The vertebral bodies are of normal height and size. There is disc space narrowing at L1-2, L2-3, and L5-S1 with degenerative arthritic changes in the apophyseal joint s bilaterally at L4-5 and L5-S1. There is a minimal grade 1 reverse spondylolisthesis at L2-3. The pe dicles and posterior elements are otherwise unremarkable. Both SI joints are normal. Calcifications a re present in the abdominal aorta and it has a normal caliber. Readin. There is disc space narrowing at L1-2, L2-3, and L5-S1. There is a minimal grade 1 reverse spondy lolisthesis at L2-3. 2. Degenerative arthritic changes are present in the apophyseal joints bilaterally at L4-5 and L5-S1 .
[2016-08-28 16:09] LABS: BASOPHILS # (AUTO) 0.01 10*3/UL; BASOPHILS % (AUTO) 0.2 % (0-1); EOSINOPHILS # (AUTO) 0.13 10*3/UL; EOSINOPHILS % (AUTO) 2.8 % (0-8); LYMPHOCYTES # (AUTO) 1.03 10*3/uL; MEAN CORPUSCULAR HEMOGLOBIN 29.9 PG (27-31); MEAN CORPUSCULAR HGB CONC 35.4 g/dL (33-37); MEAN CORPUSCULAR VOLUME 84.5 FL (80-90); MEAN PLATELET VOLUME 9.8 FL (7.4-12.2); MONOCYTES # (AUTO) 0.67 10*3/UL (0.3-0.8); MONOCYTES % (AUTO) 14.6 % (5-15); NEUTROPHILS # (AUTO) 2.73 10*3/UL; NEUTROPHILS % (AUTO) 59.3 % (50-80); RED BLOOD COUNT 5.68 10^6/uL (4.70-6.10)
[2016-08-28 16:13] LABS: BLOOD UREA NITROGEN 16 mg/dL (7-22); BUN/CREATININE RATIO 17.77 (6-20); CALCIUM 9.3 mg/dL (8.7-10.7); EST GLOMERULAR FILTRATION > 60 (>60 ml/min/1.73m(2)); SERUM ALBUMIN 3.9 g/dL (3.5-4.8)
[2016-08-28 16:15] LABS: PLATELET MORPHOLOGY COMMENT NORMAL MORPHOLOGY (NORM); RBC MORPHOLOGY COMMENT NORMAL MORPHOLOGY (NORM); WBC MORPHOLOGY COMMENT NORMAL MORPHOLOGY (NORM)
[2016-09-01 12:36] LABS: PSATOTAL 18.9 ng/mL (<=4.5)
[2016-09-01 14:45] LABS: FREE PSA/PSA RATIO SEE COMMENTS ratio (())
== END ==
LOC: MOB RAD 11:29
PROVIDERS: ATTEND Family Medicine
DX: E78.5 Hyperlipidemia, unspecified (principal); R30.0 Dysuria; M54.5 Low back pain; M48.06 Spinal stenosis, lumbar region; M43.16 Spondylolisthesis, lumbar region; M47.816 Spondylosis without myelopathy or radiculopathy, lumbar region; I10 Essential (primary) hypertension; R53.83 Other fatigue; R35.0 Frequency of micturition; C61 Malignant neoplasm of prostate; Z80.42 Family history of malignant neoplasm of prostate
CPT/HCPCS: 36415; 72100; 80053; 81002; 84153; 84154; 84443; 85025; 87088; 99213; G0463

== ENCOUNTER → 2016-12-09 | Outpatient (CLI) | payer OTHER, BC ==
--- NOTE | 2016-12-09 10:57 | DI ---
PA /LATERAL CHEST X-RAY, 12/09/2016 9:37 AM : Clinical History: Chest pressure. Previous Exam: 06/30/2016. There is no acute soft tissue or bony abnormality. Heart size is normal. Lungs are clear. Mediastinal structures are normal. There are no pulmonary nodules. Reading: Normal chest x-ray. There has been no significant interval change.
[2016-12-09 11:39] LABS: HEMATOCRIT 48.2 % (42.0-52.0); HEMOGLOBIN 16.9 g/dL (14.0-18.0); MEAN CORPUSCULAR HEMOGLOBIN 29.8 PG (27-31); MEAN CORPUSCULAR HGB CONC 35.1 g/dL (33-37); MEAN CORPUSCULAR VOLUME 84.9 FL (80-90); MEAN PLATELET VOLUME 9.9 FL (7.4-12.2); RED BLOOD COUNT 5.68 10^6/uL (4.70-6.10)
[2016-12-09 11:44] LABS: BLOOD UREA NITROGEN 13 mg/dL (7-22); BUN/CREATININE RATIO 14.44 (6-20); CALCIUM 9.5 mg/dL (8.7-10.7); EST GLOMERULAR FILTRATION > 60 (>60 ml/min/1.73m(2)); SERUM ALBUMIN 4.1 g/dL (3.5-4.8)
--- NOTE | 2016-12-10 10:34 | EKG ---
[address] [place] [address] Measurements Intervals [place] Rate: 61 P: 66 IA: 214 QRS: 47 QRSD: 93 T: 112 QT: 415 QTc: 418 Interpretive Statements SINUS RHYTHM WITH PROLONGED IA INTERVAL ANTEROSEPTAL MYOCARDIAL INFARCTION [40+ ms Q WAVE IN V1-V4], POSSIBLY RECENT (but present on 06/30/16) ACUTE [place] Compared to ECG 06/30/2016 15:05:47 First degree AV block now present Myocardial infarct finding still present Electronically Signed On 12-11-16 07:46:50 MDT by Terence Jaimes MD [email or web address]
== END ==
LOC: MOB LAB 10:25
PROVIDERS: ATTEND Family Medicine
DX: R07.89 Other chest pain (principal); I10 Essential (primary) hypertension; I44.0 Atrioventricular block, first degree; I25.2 Old myocardial infarction
CPT/HCPCS: 36415; 71020; 80053; 84484; 85027; 93005; 93010

== ENCOUNTER → 2016-12-11 | Outpatient (CLI) | payer OTHER, BC | LOC: MMPC 09:00 | PROVIDERS: ATTEND Family Medicine | DX: R07.89 Other chest pain (principal); I25.10 Atherosclerotic heart disease of native coronary artery without angina pectoris; R06.02 Shortness of breath; R20.0 Anesthesia of skin ==

== ENCOUNTER → 2016-12-11 | Outpatient (CLI) | payer OTHER, BC | LOC: EKG 09:37 | PROVIDERS: ATTEND Family Medicine | DX: R07.89 Other chest pain (principal); R06.02 Shortness of breath; R20.0 Anesthesia of skin; I25.10 Atherosclerotic heart disease of native coronary artery without angina pectoris; I10 Essential (primary) hypertension; F17.200 Nicotine dependence, unspecified, uncomplicated | CPT/HCPCS: 99214 ==

== ENCOUNTER → 2017-01-01 | Outpatient (CLI) | payer OTHER, BC ==
[2017-01-01 12:40] LABS: BASOPHILS # (AUTO) 0.05 10*3/UL; BASOPHILS % (AUTO) 0.9 % (0-1); EOSINOPHILS # (AUTO) 0.15 10*3/UL; EOSINOPHILS % (AUTO) 2.7 % (0-8); HEMATOCRIT 49.6 % (42.0-52.0); HEMOGLOBIN 17.6 g/dL (14.0-18.0); MEAN CORPUSCULAR HGB CONC 35.5 g/dL (33-37); MEAN CORPUSCULAR VOLUME 84.6 FL (80-90); MEAN PLATELET VOLUME 9.6 FL (7.4-12.2); MONOCYTES # (AUTO) 0.62 10*3/UL (0.3-0.8); MONOCYTES % (AUTO) 11.2 % (5-15); NEUTROPHILS # (AUTO) 3.68 10*3/UL; NEUTROPHILS % (AUTO) 66.7 % (50-80); RED BLOOD COUNT 5.86 10^6/uL (4.70-6.10)
[2017-01-01 12:49] LABS: BLOOD UREA NITROGEN 14 mg/dL (7-22); CALCIUM 9.5 mg/dL (8.7-10.7); EST GLOMERULAR FILTRATION > 60 (>60 ml/min/1.73m(2)); SERUM ALBUMIN 4.2 g/dL (3.5-4.8)
[2017-01-01 13:39] LABS: PLATELET MORPHOLOGY COMMENT NORMAL MORPHOLOGY (NORM); RBC MORPHOLOGY COMMENT NORMAL MORPHOLOGY (NORM); WBC MORPHOLOGY COMMENT NORMAL MORPHOLOGY (NORM)
[2017-01-02 11:56] LABS: PSATOTAL 22.2 ng/mL (<=4.5)
[2017-01-04 07:15] LABS: FREE PSA/PSA RATIO SEE COMMENTS ratio (())
== END ==
LOC: MOB LAB 11:23
PROVIDERS: ATTEND Family Medicine
DX: R97.20 Elevated prostate specific antigen [PSA] (principal); I10 Essential (primary) hypertension; E78.5 Hyperlipidemia, unspecified; R30.0 Dysuria
CPT/HCPCS: 36415; 80053; 84153; 84154; 85025